=== PATIENT | male | born 2000 | race Caucasian/White ===

== ENCOUNTER 2020-07-01 22:08 | Emergency (ER) | payer OTHER ==
[2020-07-01 22:16] VITALS: BP 143/75; PULSE 80; TEMP 97.9; BMI 41.5
[2020-07-01] MEDS ORDERED: DIPHTH,PERTUSS(ACELL),TET 0.5 ML DISP.SYRIN IM ONE ×2 (22:40→23:07)
[2020-07-01] MEDS ORDERED: AMOX TR/POT CLAV 875MG/125MG TABLETS (FP) PO ONE (22:41)
[2020-07-01] MEDS ORDERED: AMOX TR/POT CLAV 875MG/125MG TABLETS (FP) ONE ×2 (23:06→23:11)
--- NOTE | 2020-07-01 23:11 | PDOC ---
History of Present Illness - General Chief Complaint: Bite Stated Complaint: BITE BY DOG Time Seen by Provider: 07/01/20 22:27 History Source: Patient Exam Limitations: No Limitations - History of Present Illness Initial Comments: 07/01/20 23:04 20-year-old male no significant past medical history presenting to the ED 30 minutes status post dog bite to the face. Patient states that he was playing with his friends dog the dog jumped up and bit him on the lips. Patient states that his friend told him (I spoke with a friend via phone) that the dog is up-to-date on all vaccines and sees a vet regularly and has not shown any aggressive behavior. Patient is not up-to-date on tetanus. Denies numbness tingling in the face pt otherwise denies: fevers, chills, syncope, lighth eadedness, dizziness, headaches, neck pain, chest pain, shortness of breath, palpitations, back pain, abdominal pain, nausea, vomiting, diarrhea, constipation. Past History - Medical History Allergies/Adverse Reactions: Allergies Allergy/AdvReac Type Severity Reaction Status Date / Time No Known Allergies Allergy Verified 07/01/20 22:14 Home Medications: Ambulatory Orders Amox-Tr/K Cl [Augmentin - 875Mg Tablet] 1 tab PO BID #14 tablet 07/01/20 CVA: No COPD: No - Psycho-Social/Smoking History Smoking History: Never smoked - Substance Abuse Hx (Audit-C & DAST Scrn) How often the patient has a drink containing alcohol: Never Score: In Men: 4 or > Positive; In Women: 3 or > Positive: 0 Screen Result (Pos requires Nsg. Audit-10AR): Negative *Physical Exam - Vital Signs Last Vital Signs Temp Pulse Resp BP Pulse Ox 97.9 F 80 20 143/75 99 07/01/20 22:14 07/01/20 22:14 07/01/20 22:14 07/01/20 22:14 07/01/20 22:14 - Physical Exam 07/01/20 23:05 Gen: AAOx 3, no acute distress, comfortable, no signs of respiratory distress HENT: atraumatic, normocephalic. Nasal mucosa without erythema. Oropharynx without erythema or exudates. There are 4 lacerations to the lip all crossing the vermilion boarder with active bleeding. EYES: PERRL, EOM intact, conjunctiva pink NECK: supple; trachea midline; no JVD, no lymphadenopathy, or thyromegaly CV: RRR no murmurs, gallops, or rubs. CHEST: CTA b/l no wheezing, rales or rhonchi ABD: +BS/ND. no TTP; soft, no rebound, no guarding NEURO: normal speech, CN II-XII intact, sensation intact, normal gait, no cerebellar deficits MS: 5/5 strength in all extremities, FROM intact in all extremities. 07/01/20 23:20 Medical Decision Making - Medical Decision Making 07/01/20 23:08 20-year-old male with dog bite to lips Vital signs stable No need for rabies immunoglobulin or vaccine as dog up-to-date on vaccines and is seen by a vet regularly. We will update tetanus and give first dose of Augmentin here 1 week Augmentin sent to patient's preferred pharmacy Patient to be transferred to [facility] for plastic surgery as plastic surgery is not available at [facility] Dr. Martinez accepted the transfer and patient will arrive to [facility] via his own vehicle as he is denying ambulance transport. All risks and benefits were explained to patient and patient agrees to transfer. Discharge - Discharge Information Problems reviewed: Yes Clinical Impression/Diagnosis: Dog bite Qualifiers: Encounter type: initial encounter Qualified Code(s): W54.0XXA - Bitten by dog, initial encounter Condition: Stable Disposition: TRANSFER ACUTE CARE/OTHER HOSP - Additional Discharge Information Prescriptions: Amox-Tr/K Cl [Augmentin - 875Mg Tablet] 1 tab PO BID #14 tablet - Follow up/Referral - Patient Discharge Instructions Patient Printed Discharge Instructions: DI for Animal Bites - Post Discharge Activity Work/Back to School Note: Back to Work - Transfer to Acute Care Facility Receiving Facility Name: [facility] (Dr Floyd)
== END 2020-07-01 23:25 | disposition short-term general hospital (02) ==
LOC: JERFT 22:08
PROC: 3E0234Z Introduction of Serum, Toxoid and Vaccine into Muscle, Percutaneous Approach (ICD-10-PCS; principal; 2020-07-01)
DX: S01.531A Puncture wound without foreign body of lip, initial encounter (principal); W54.0XXA Bitten by dog, initial encounter
CPT/HCPCS: 90715; 99285-25

== ENCOUNTER 2021-09-08 14:14 | Emergency (ER) | payer OTHER ==
[2021-09-08 14:32] VITALS: BP 141/76; PULSE 76; TEMP 98; BMI 39.0
[2021-09-08] MEDS ORDERED: BACITRACIN 15 GM TUBE TOPICAL OINTMENT ONE (15:33)
[2021-09-08] MEDS ORDERED: BACITRACIN 15 GM TUBE TOPICAL OINTMENT TP ONE (15:40)
== END 2021-09-08 17:07 | disposition home or self-care (01) ==
LOC: JERFT 14:14
DX: T23.001A Burn of unspecified degree of right hand, unspecified site, initial encounter (principal); T23.002A Burn of unspecified degree of left hand, unspecified site, initial encounter; X19.XXXA Contact with other heat and hot substances, initial encounter
CPT/HCPCS: 99282-25